=== PATIENT | male | born 1975 | race Hispanic/Latino ===

== ENCOUNTER 2022-07-02 14:39 | Emergency (ER) | payer OTHER, BC ==
[~2022-07-02 14:39] MED LIST: Iopamidol-370 76% 500 ML 1 ML ONE
[2022-07-02] MEDS ORDERED: Boostrix 0.5 ML (Tdap) VIAL (>/=7 yrs of age) ONE ×2 (15:05→17:12)
[2022-07-02 15:37] LABS: #Basophils 0.1 thou/uL (0.0-0.2); #Eosinphils 0.1 thou/uL (0.0-0.7); #Lymphocytes 3.3 thou/uL (1.20-3.40); #Monocytes 0.5 thou/uL (0.11-0.59); #Neutrophils 3.9 thou/uL (1.40-6.50); %Basophils 0.7 % (0.0-1.0); %Eosinophils 0.8 % (0.0-10.0); %Lymphocytes 42.7 % (21.0-51.0); %Monocytes 6.3 % (0.0-10.0); %Neutrophils 49.4 % (42.0-75.0); Hemoglobin 15.2 g/dL (14.0-18.0); Mean Corpuscular HGB CONC 33.3 g/dL (32.0-36.0); Mean Corpuscular Hemoglobin 30.4 pg (27.0-31.0); Mean Corpuscular Volume 91.2 fl (78.0-98.0); Mean Platelet Volume 10.7 fL (7.4-10.4); Platelet Count 159 10x3/uL (130-400); RBC Distribution Width 11.5 % (11.5-14.5); White Blood Cell (WBC) Count 7.8 10x3/uL (4.8-10.8)
[2022-07-02 15:46] LABS: PTT 29.3 sec (22.9-36.1); Prothrombin Time 13.7 sec (12.0-14.7)
[2022-07-02 15:53] LABS: Acetaminophen Less than 10.0 mcg/mL (10.0-30.0); Alcohol Less than 10 mg/dL (Less than 10); Salicylate Less than 8.0 mg/dL (15.0-30.0)
[2022-07-02 15:54] LABS: ALT (SGPT) 20 U/L (8-55); AST (SGOT) 19 U/L (5-34); Albumin 4.5 g/dL (3.5-5.0); Alkaline Phosphatase 56 U/L (40-110); Anion Gap 13 mmol/L (10-20); BUN (Urea Nitrogen) 13 mg/dL (8.9-20.6); Bilirubin, Total 0.8 mg/dL (0.2-1.2); CK (CPK) 167 U/L (30-200); Calc. Creatinine Clearance 0 mL/min (70-130); Calcium 9.4 mg/dL (7.8-10.44); Carbon Dioxide 25 mmol/L (22-29); Chloride 107 mmol/L (98-107); Estimated GFR 102; Globulin 2.6 g/dL (2.4-3.5); Glucose 111 mg/dL (70-105); Lipase 24 U/L (8-78); Protein, Total 7.1 g/dL (6.0-8.3); Sodium 141 mmol/L (136-145)
[2022-07-02] MEDS ORDERED: Promethazine HCl 25 MG/ML VIAL IM PRN (16:17)
[2022-07-02] MEDS ORDERED: TETANUS, DIPHTHERIA TOX,ADULT (TDVAX) 0.5 ML VIAL IM ONE (16:17)
[2022-07-02] MEDS ORDERED: hydrALAZINE 20 MG/ML VIAL SLOW IVP PRN (16:17)
[2022-07-02] MEDS ORDERED: Ondansetron PF 4 MG/2 ML Vial IVP PRN (16:17)
[2022-07-02] MEDS ORDERED: Sodium Chloride 0.9% 1,000 ML IV SCH (16:30)
[2022-07-02] MEDS ORDERED: Acetaminophen 500 MG TAB PO SCH (18:00)
[2022-07-02] MEDS ORDERED: traMADol HCl 50 MG TAB PO SCH (18:00)
== END 2022-07-02 17:10 | disposition home or self-care (01) ==
LOC: ERS 14:39
DX: S22.42XA Multiple fractures of ribs, left side, initial encounter for closed fracture (principal); F07.81 Postconcussional syndrome; V49.9XXA Car occupant (driver) (passenger) injured in unspecified traffic accident, initial encounter; Z23 Encounter for immunization
CPT/HCPCS: 36415; 70450; 71260; 72125; 74177; 80053; 80307; 82550; 83690; 85025; 85610; 85730; 90471; 90715; Q9967

== ENCOUNTER 2022-07-03 12:54 | Outpatient (CLI) | payer BC | END 2022-07-03 12:55 | disposition home or self-care (01) | LOC: RAD 12:54 | PROVIDERS: ATTEND Surgery | DX: S27.0XXA Traumatic pneumothorax, initial encounter (principal) | CPT/HCPCS: 71046 ==